=== PATIENT | male | born 1990 | race African-American/Black ===

== ENCOUNTER 2017-08-02 18:56 | Emergency (ER) | payer OTHER, MEDICAID ==
[~2017-08-02] VITALS: Ht 182.9 cm; Wt 88.0 kg
[~2017-08-02 18:56] MED LIST: CEPH500 PO
[2017-08-02 18:58] VITALS: BP 147/85; PULSE 86; RESP 12; TEMP 98.2; O2SAT 98
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
[2017-08-02] MEDS ORDERED: TETANUS/DIPHTHERIA TOXOID ADULT 0.5 ML VIAL IM ONE (22:45)
[2017-08-02] MEDS ORDERED: ACETAMINOPHEN/HYDROcodone 325 MG/5 MG TAB PO ONE (22:45)
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
[2017-08-03] MEDS ORDERED: HYDR-3516 PO (01:14)
== END 2017-08-03 01:20 | disposition home or self-care (01) ==
LOC: NEPD 18:56
DX: S62.616A Displaced fracture of proximal phalanx of right little finger, initial encounter for closed fracture (principal); S80.211A Abrasion, right knee, initial encounter; Z23 Encounter for immunization; V87.8XXA Person injured in other specified noncollision transport accidents involving motor vehicle (traffic), initial encounter
CPT/HCPCS: 29125; 73130; 73564; 90471; 90714; 99284; L1830

== ENCOUNTER 2017-11-08 02:03 | Emergency (ER) | payer MEDICAID, OTHER ==
[~2017-11-08] VITALS: Ht 182.9 cm; Wt 91.0 kg
[~2017-11-08 02:03] MED LIST changes: +HYDR-3516 PO
[2017-11-08 02:04] VITALS: BP 153/85; PULSE 65; RESP 14; TEMP 98.6; O2SAT 98
[2017-11-08] MEDS ORDERED: DICL50TA3 PO (02:34)
[2017-11-08] MEDS ORDERED: AMOX500T PO (02:34)
--- NOTE | 2017-11-08 02:38 | PD ---
HPI Chief Complaint: Oral / Dental Pain or Problem Time Seen by Provider: 02:25 Travel History International Travel<30 days: No Contact w/Intl Traveler<30days: No Traveled to known affect area: No History of Present Illness HPI 27-year-old black male presents to the department with complaints of dental pain 2 days. He states that part of his left upper wisdom tooth broke off. He has a dental carry it has become increasing painful. He denies any fever chills. No nausea vomiting. Pain is mild to moderate. No alleviating factors. Exacerbated by fracturing of the tooth PFSH Past Medical History Medical History: Denies Significant Hx Diminished Hearing: No Immunizations Current: Yes Tetanus Vaccination: < 5 Years Influenza Vaccination: No Past Surgical History Surgical History: No Previous Surgery Social History Alcohol Use: No Tobacco Use: No Substance Use: No Allergies-Medications (Allergen,Severity, Reaction): Coded Allergies: No Known Allergies (Verified Adverse Reaction, Unknown, 11/08/17) Reported Meds & Prescriptions Reported Meds & Active Scripts Active Diclofenac Sodium DR (Diclofenac Sodium) 50 Mg Tabdr 50 Mg PO TID Amoxicillin 500 Mg Tab 500 Mg PO TID 10 Days Review of Systems General / Constitutional: No: Fever Eyes: No: Visual changes HENT: Positive: Dental Difficulties, No: Headaches, Sore Throat, Neck Pain, Gingival Bleeding, Ear Discharge, Earache Cardiovascular: No: Chest Pain or Discomfort Respiratory: No: Shortness of Breath Gastrointestinal: No: Abdominal Pain Genitourinary: No: Dysuria Musculoskeletal: No: Pain Skin: No Rash Neurologic: No: Weakness Psychiatric: No: Depression Endocrine: No: Polydipsia Hematologic/Lymphatic: No: Easy Bruising Physical Exam Narrative GENERAL: Well-developed, well-nourished in no acute distress. Nontoxic appearing. HEAD: Normocephalic, atraumatic. EYES: Pupils equal round and reactive. Extraocular motions intact. No scleral icterus. No injection or drainage. ENT: TMs clear without erythema. The external auditory canals clear. Nose: clear . Posterior pharynx is pink and moist. No tonsillar edema or exudate. Uvula midline. Airway patent. Patient has a dental carry in tooth #16. No gingival erythema. Complains of pain with percussion NECK: Trachea midline.Supple, nontender, moves head freely. No central bony tenderness or spasm. CARDIOVASCULAR: Regular rate and rhythm without murmurs, gallops, or rubs. RESPIRATORY: Clear to auscultation. Breath sounds equal bilaterally. No wheezes , rales, or rhonchi. GASTROINTESTINAL: Abdomen soft, non-tender, nondistended. No hepato-splenomegaly , or palpable masses. No guarding. EXTREMITIES: No clubbing, cyanosis, or edema. No joint tenderness, effusion, or edema noted. BACK: Nontender without deformity or crepitance. No flank tenderness. Data Data Last Documented VS Vital Signs Date Time Temp Pulse Resp B/P (MAP) Pulse Ox O2 Delivery O2 Flow Rate FiO2 11/08/17 02:04 98.6 65 14 153/85 (107) 98 Room Air Orders Orders Amoxicillin (Trimox) (11/08/17 02:45) Acetamin-Hydrocod 325-5 Mg ([place] 5-325 (11/08/17 02:45) Ed Discharge Order (11/08/17 02:35) MDM Medical Decision Making Medical Screen Exam Complete: Yes Emergency Medical Condition: Yes Medical Record Reviewed: Yes Differential Diagnosis MDM: Moderate Differential diagnoses: Dental abscess, dental caries, osteitis, cellulitis Narrative Course Patient is given amoxicillin 500 and Lortab 5 milligram by mouth. This is dental caries, dentalgia Diagnosis Primary Impression: Dental caries Additional Impression: Dentalgia Patient Instructions: General Instructions, Narcotic given in the ED Additional Instructions: Rest. [place] gargles. [place] oil on cotton balls. Amoxicillin and diclofenac follow-up with a dentist as soon as possible. And return to the ER if any problems. Med/Other Pt SpecificInfo: Prescription(s) given Scripts Diclofenac Sodium DR (Diclofenac Sodium DR) 50 Mg Tabdr 50 MG PO TID, #12 TAB 0 Refills Prov: Eddie Dickens MD 11/08/17 Amoxicillin (Amoxicillin) 500 Mg Tab 500 MG PO TID for Infection for 10 Days, TAB 0 Refills Prov: Eddie Dickens MD 11/08/17 Disposition: 01 DISCHARGE HOME Condition: Stable Keith Craft Nov 08, 2017 02:38
[2017-11-08] MEDS ORDERED: ACETAMINOPHEN/HYDROcodone 325 MG/5 MG TAB PO ONE (02:45)
[2017-11-08] MEDS ORDERED: AMOXICILLIN (TRIHYDRATE) 500 MG CAP PO ONE (02:45)
== END 2017-11-08 02:56 | disposition home or self-care (01) ==
LOC: NEPD 02:03
DX: K02.9 Dental caries, unspecified (principal)
CPT/HCPCS: 99283

== ENCOUNTER 2018-02-22 22:03 | Emergency (ER) | payer MEDICAID ==
[~2018-02-22] VITALS: Ht 180.3 cm; Wt 91.0 kg
[~2018-02-22 22:03] MED LIST changes: +AMOX500T PO; -CEPH500 PO; +DICL50TA3 PO; -HYDR-3516 PO
[2018-02-22 22:49] VITALS: BP 123/74; PULSE 62; RESP 20; TEMP 98.8; O2SAT 100
[2018-02-22] MEDS ORDERED: BACT800T5 PO (23:14)
[2018-02-22] MEDS ORDERED: DOXY100C PO (23:14)
[2018-02-22] MEDS ORDERED: SULFAMETHOXAZOLE-TRIMETHOPRIM DS 800-160 MG TAB PO ONE (23:15)
[2018-02-22] MEDS ORDERED: DOXYCYCLINE HYCLATE 100 MG CAP PO ONE (23:15)
--- NOTE | 2018-02-22 23:19 | PD ---
HPI Chief Complaint: Lump, Cyst, Hernia Time Seen by Provider: 23:05 Travel History International Travel<30 days: No Contact w/Intl Traveler<30days: No Traveled to known affect area: No History of Present Illness HPI 27-year-old black male presents emergency department with a lump under his left axilla over the past several days. He has become increasingly painful and swollen. He had a leave work earlier this evening because of the discomfort. He denies any fever chills. He states that he had a similar abscess in his groin years ago. He has never had him in his axilla. He denies any fever chills. No drainage. PFSH Past Medical History Medical History: Denies Significant Hx Diminished Hearing: No Immunizations Current: Yes Tetanus Vaccination: < 5 Years Influenza Vaccination: Yes Past Surgical History Surgical History: No Previous Surgery Social History Alcohol Use: No Tobacco Use: Yes Substance Use: No Allergies-Medications (Allergen,Severity, Reaction): Coded Allergies: No Known Allergies (Verified Adverse Reaction, Unknown, 02/22/18) Reported Meds & Prescriptions Reported Meds & Active Scripts Active Doxycycline Hyclate 100 Mg Cap 100 Mg PO BID Bactrim DS (Sulfamethoxazole-Trimethoprim) 800-160 Mg Tab 1 Tab PO BID Review of Systems General / Constitutional: No: Fever Eyes: No: Visual changes HENT: No: Headaches Cardiovascular: No: Chest Pain or Discomfort Respiratory: No: Shortness of Breath Gastrointestinal: No: Abdominal Pain Genitourinary: No: Dysuria Musculoskeletal: No: Pain Skin: Positive Lumps, No Rash Neurologic: No: Weakness Psychiatric: No: Depression Endocrine: No: Polydipsia Hematologic/Lymphatic: No: Easy Bruising Physical Exam Narrative GENERAL: This is a well-nourished, well-developed patient, in no apparent distress. SKIN: Patient has a 3 x 3 cm erythematous indurated area of skin to the left axilla. There is no fluctuance or pointing.. Warm and dry. HEAD: Atraumatic. Normocephalic. EYES: PERRL, EOMI, no discharge or injection. No scleral icterus. EARS: Clear NOSE: Nasal turbinates appear normal. THROAT: Mucosa pink and moist. Airway patent. NECK: Trachea midline. supple, moves head freely. LUNGS: Clear to auscultation. CV: Regular in rhythm. ABDOMEN: Soft nontender. EXT: No clubbing cyanosis or edema. Data Data Last Documented VS Vital Signs Date Time Temp Pulse Resp B/P (MAP) Pulse Ox O2 Delivery O2 Flow Rate FiO2 02/22/18 22:49 98.8 62 20 123/74 (90) 100 Orders Orders Ed Discharge Order (02/22/18 23:15) Sulfamet-Trimeth Ds 800-160 Mg (Bactrim (02/22/18 23:15) Doxycycline (Vibramycin) (02/22/18 23:15) MDM Medical Decision Making Medical Screen Exam Complete: Yes Emergency Medical Condition: Yes Medical Record Reviewed: Yes Differential Diagnosis MDM: High Differential diagnoses: Abscess, folliculitis, cellulitis, lymphangitis, abrasion, contact dermatitis Narrative Course Patient appears to be developing an abscess to his left axilla. There is no fluctuance or pointing. Incision and drainage is not indicated at this time. We will try oral antibiotics and warm compresses. Patient agrees with treatment plan and follow-up. He understands that if he develops any softening or pointing he is to return for incision and drainage. Patient given Bactrim DS and doxycycline 100 mg p.o. Diagnosis Primary Impression: Left axilla abscess Patient Instructions: General Instructions Additional Instructions: Rest. Elevation. keep clean and dry. Warm compresses Daily wound care with soap, water and Neosporin. Three Advil every 6 hours. Doxycycline, Septra DS. Follow-up with a primary care doctor in one week. Return to the ER for any problems. Warm compresses. Med/Other Pt SpecificInfo: Prescription(s) given Scripts Doxycycline Hyclate (Doxycycline Hyclate) 100 Mg Cap 100 MG PO BID for Infection, #20 CAP 0 Refills Prov: Kathleen Felder MD 02/22/18 Sulfamethoxazole-Trimethoprim (Bactrim DS) 800-160 Mg Tab 1 TAB PO BID for Infection, #20 TAB 0 Refills Prov: Kathleen Felder MD 02/22/18 Disposition: 01 DISCHARGE HOME Condition: Stable Keith Craft Feb 22, 2018 23:19
== END 2018-02-22 23:31 | disposition home or self-care (01) ==
LOC: NEPD 22:03
DX: L02.412 Cutaneous abscess of left axilla (principal); Z72.0 Tobacco use
CPT/HCPCS: 99283